=== PATIENT | born 1955 | race Caucasian/White ===

== ENCOUNTER → 2025-02-18 08:30 | Outpatient (BNVA) | payer MEDICARE, SELFPAY | PROVIDERS: Referring Provider Nurse Practitioner Family; Visit Provider Psychiatry & Neurology Neurology | DX: R93.0 Abnormal findings on diagnostic imaging of skull and head, not elsewhere classified (principal) | CPT/HCPCS: 36415; 82306; 82542; 82607; 82746; 83520; 83735; 99203 ==

== ENCOUNTER 2025-03-06 11:31 | Outpatient (CLI) | payer MEDICARE, SELFPAY ==
--- NOTE | 2025-03-06 12:15 | USCV_ITS ---
Jorje Parson Age: 69 Gender: U : 1955 Exam Date: 03/06/2025 11:45 Ordering Phys: Evens Pennington MD Technologist: R Exam Location: [facility] Indication: memory loss Risk Factors: Previous Vascular Surgery: Right Brachial BP: / Left Brachial BP: / Right Left Velocity (cm/s) Spectral Plaque Velocity (cm/s) Spectral Plaque Syst/Diast Broadening Syst/Diast Broadening 104.40/21.50 Prox CCA 96.30 / 21.60 82.40/ 17.60 Mid CCA 85.60 / 22.50 88.90/ 20.20 Distal CCA 95.30 / 25.00 68.50/ 24.30 Prox ICA 61.60 / 21.60 79.60/ 24.30 Mid ICA 87.00 / 35.00 48.70/ 17.50 Distal ICA 82.80 / 33.90 80.20 ECA 72.20 0.80 ICA/CCA 0.60 Antegrade Vertebral Antegrade 62.70/ 21.30 cm/s 43.70/ 13.20 cm/s Tri Subclavian Tri 70.90 133.6 0 CONCLUSIONS Right ICA stenosis <50%. Mild atheromatous plaque right carotid bulb/ICA. Left ICA stenosis <50%. Mild atheromatous plaque left carotid bulb/ICA. Normal antegrade Doppler flow noted in the right vertebral artery. Normal antegrade Doppler flow noted in the left vertebral artery. Geovanni Simms MD (Electronically Signed) Final Date: 06 March 2025 14:00 S
--- NOTE | 2025-03-06 13:00 | MR_ITS ---
WS: [id number] MRA HEAD TECHNIQUE: Axial 3-D TOF images obtained with axial images and axial, sagittal, and coronal 2-D reformatted images. CLINICAL INFORMATION: R41.3 - Other amnesia COMPARISON: None. FINDINGS: Distal vertebrals are patent. Basilar artery is patent. Normal vascularity to the SURVEY DIRECTOR territory bilaterally. Both ICAs are patent at the skull base. Normal vascularity to the RAYMOND and MCA territories bilaterally. No evidence of proximal flow-limiting stenosis. MR/MR angio head wo con [id number] IMPRESSION: 1. No evidence of proximal flow-limiting stenosis. 2. Otherwise unremarkable MRA.
--- NOTE | 2025-03-06 13:00 | MR_ITS ---
WS: [id number] MRA CAROTID WITHOUT AND WITH GADOLINIUM ENHANCEMENT TECHNIQUE: Axial 2-D TOF and gadolinium bolus images obtained with axial images and axial, sagittal, and coronal 2-D reformatted images. CLINICAL INFORMATION: R41.3 - Other amnesia COMPARISON: None. FINDINGS: RIGHT: RIGHT common carotid artery is patent. No significant RIGHT ICA stenosis. RIGHT ICA is patent to the skull base. LEFT: LEFT common carotid artery is patent. No significant LEFT ICA stenosis. LEFT ICA is patent to the skull base. RIGHT dominant vertebral artery. Smaller but patent LEFT vertebral artery. Proximal basilar artery is patent. Proximal subclavian arteries are patent. MR/MR angio neck w con* [id number] IMPRESSION: 1. Normal neck MRA.
[2025-03-06] MEDS: gadobenate dimeglumine 20 mL vial 17 ML IV (13:17)
== END 2025-03-06 11:32 | disposition home or self-care (01) ==
LOC: RAD 11:34
PROVIDERS: PCP Nurse Practitioner Family; Visit Provider Psychiatry & Neurology Neurology
DX: R41.3 Other amnesia (principal); R93.0 Abnormal findings on diagnostic imaging of skull and head, not elsewhere classified; I65.23 Occlusion and stenosis of bilateral carotid arteries
CPT/HCPCS: 70544; 70548; 93880